=== PATIENT | male | born 1965 | race Caucasian/White ===

== ENCOUNTER 2018-05-01 11:34 | Observation (INO) ==
[2018-05-01] MEDS ORDERED: Lidocaine PF 1% Inj 5 ML Syringe INFILTRATN ONE (12:00)
[2018-05-01] MEDS ORDERED: Phenylephrine/NS 1000 MCG/10ML Syringe IV.PUSH ONE (12:00)
[2018-05-01] MEDS ORDERED: Chlorhexidine Gluconate 2% 1 Pack (2 Cloths) TOPICAL SCH (13:00)
[2018-05-01] MEDS ORDERED: Metoprolol Tartrate 25 MG Tablet PO SCH (13:00)
[2018-05-01] MEDS ORDERED: Sodium Chlor 0.9% Inj 500 ML IV.SIG SCH (13:00)
--- NOTE | 2018-05-01 13:32 | P.HPUP ---
The Pre-Admit History and Physical Examination regarding the above named patient was reviewed (including, but not limited to, vital signs, heart, lungs, co-morbid conditions), and upon re-examination it is noted that: the patient's condition has not significantly changed since the last examination.
[2018-05-01 13:40] LABS: Baso % (Auto) 0.5 % (0.0-2.0); Eos # (Auto) 0.2 th/mm3 (0.0-0.4); Eos % (Auto) 3.2 % (0.0-4.0); Hematocrit 43.3 % (39.0-51.0); Hemoglobin 14.6 gm/dL (13.0-17.0); Lymph # (Auto) 1.2 th/mm3 (1.0-4.8); Lymph % (Auto) 23.1 % (9.0-44.0); Mean Corpuscular HGB Conc 33.8 % (32.0-36.0); Mean Corpuscular Hemoglobin 29.3 pg (27.0-34.0); Mean Corpuscular Volume 86.8 fL (80.0-100.0); Mean Platelet Volume 8.4 fL (7.0-11.0); Mono # (Auto) 0.5 th/mm3 (0.0-0.9); Mono % (Auto) 10.7 % (0.0-8.0); Neut # (Auto) 3.1 th/mm3 (1.8-7.7); Neut % (Auto) 62.5 % (16.0-70.0); Platelet Count 200 th/mm3 (150-450); Red Blood Count 4.99 mil/mm3 (4.50-5.90); Red Cell Distribution Width 17.2 % (11.6-17.2)
[2018-05-01] MEDS ORDERED: Lidocaine 1%/Epinephrine 1:100,000 Inj 30 ML Vial ONE (14:21)
[2018-05-01] MEDS ORDERED: Bupivacaine/Epinephrine PF Inj 0.5% 10 ML Vial ONE (14:22)
[2018-05-01] MEDS ORDERED: Potassium Chlor 20 mEq Premix 20 MEQ/100 ML PIGGYBACK IV.SIG PRN (15:35)
[2018-05-01] MEDS ORDERED: Acetaminophen 325 MG Tablet PO PRN (15:35)
[2018-05-01] MEDS ORDERED: Potassium Chlor 40 mEq Premix 40 MEQ/100 ML PIGGYBACK IV.SIG PRN (15:35)
[2018-05-01] MEDS ORDERED: Naproxen 500 MG Tablet PO PRN (15:39)
[2018-05-01] MEDS ORDERED: KCL 20 mEq/D5W/NaCl 0.9% Inj 1,000 ML ONE (16:05)
[2018-05-01] MEDS: KCL 20 mEq/D5W/NaCl 0.9% Inj 1,000 ML IV.CONT SCH (16:10)
[2018-05-01] MEDS ORDERED: Ketorolac Inj 30 MG/ML (IVP) Vial IV.PUSH PRN (18:00)
[2018-05-01 23:11] VITALS: RESP 18
[2018-05-02 01:15] VITALS: BP 128/67; PULSE 74; TEMP 97.7; O2SAT 95
[2018-05-02] MEDS ORDERED: Lisinopril 5 MG Tablet PO SCH (09:00)
[2018-05-02] MEDS ORDERED: Pantoprazole Inj 40 MG Vial IV.PUSH SCH (09:00)
[2018-05-02] MEDS ORDERED: amLODIPine 10 MG Tablet PO SCH (09:00)
[2018-05-02] MEDS ORDERED: Allopurinol 100 MG Tablet PO SCH (09:00)
[2018-05-02 09:09] LABS: Baso % (Auto) 0.1 % (0.0-2.0); Hematocrit 41.2 % (39.0-51.0); Hemoglobin 13.5 gm/dL (13.0-17.0); Lymph # (Auto) 0.6 th/mm3 (1.0-4.8); Lymph % (Auto) 6.7 % (9.0-44.0); Mean Corpuscular HGB Conc 32.6 % (32.0-36.0); Mean Corpuscular Hemoglobin 28.1 pg (27.0-34.0); Mean Platelet Volume 8.2 fL (7.0-11.0); Mono # (Auto) 0.4 th/mm3 (0.0-0.9); Mono % (Auto) 4.7 % (0.0-8.0); Neut % (Auto) 88.5 % (16.0-70.0); Platelet Count 215 th/mm3 (150-450); Red Blood Count 4.79 mil/mm3 (4.50-5.90); Red Cell Distribution Width 17.2 % (11.6-17.2)
[2018-05-02 09:41] LABS: Anion Gap 8 meq/L (5-15); Blood Urea Nitrogen 8 mg/dL (7-18); Calcium 9.1 mg/dL (8.5-10.1); Carbon Dioxide 27.5 meq/L (21.0-32.0); Chloride 105 meq/L (98-107); Glomerular Filtration Rate Greater Than 89 mL/min (>89); Glucose,Random 99 mg/dL (74-106); Potassium 4.3 meq/L (3.5-5.1); Sodium 140 meq/L (136-145)
--- NOTE | 2018-05-02 11:11 | ECG ---
Date Performed: 05/01/2018 Time Performed: 12:18:44 PTAGE: 53 years EKG: Sinus rhythm NORMAL ECG PREVIOUS TRACING : 05/16/2012 12.40 DOCTOR: Jose Ramon Dougherty Interpretating Date/Time 05/02/2018 11:10:38
[2018-05-02] MEDS: KCL 20 mEq/D5W/NaCl 0.9% Inj 1,000 ML IV.CONT SCH (11:12)
--- NOTE | 2018-05-02 22:49 | MP ---
cc: Abdiaziz Ramirez MD, Andrew H MD DATE OF OPERATION: 05/01/2018 PREOPERATIVE DIAGNOSIS: Grade 4 hemorrhoids with prolapse. PROCEDURE PERFORMED: Exam under anesthesia, with anorectoplasty. POSTOPERATIVE DIAGNOSIS: Grade 4 hemorrhoids with prolapse. SURGEON: Abdiaziz Ramirez MD DESCRIPTION OF PROCEDURE: The patient was placed in the supine position. After adequate general anesthesia, the patient was turned and placed in the prone jackknife position and supported appropriately. Buttocks were then taped apart, prepped with Betadine solution and draped in the usual sterile fashion. Initially, local anesthesia was obtained by injection of 1% Xylocaine/0.5% Marcaine with epinephrine. The anal canal was gently dilated and a half moreno retractor inserted. Examination revealed very chronically thickened excoriated hemorrhoids in all 3 quadrants with quite a bit of external tags and prolapse of the mucosa. The rectal vault appeared to be pretty unremarkable. The sphincter muscle was a little patulous. Initially, an elliptical incision was made over the large hemorrhoidal mass in the left lateral quadrant, taking it off the internal and external sphincter. The pedicle was narrowed and divided with electrocautery. The mucosa was then closed with a running 3-0 Vicryl suture extending the closure up onto the anoderm as well. Similar dissection was then performed in the right anterior and the right posterior positions closing all incisions in a similar fashion. Quite a bit of redundant anoderm was taken, but the lumen at the end of the procedure was pretty adequate. Hemostasis was achieved at all sites. Small Surgicel dressing placed in the anal canal and a large fluff dressing placed externally. The patient tolerated the procedure quite well and was brought to the recovery room in stable condition. The sponge and needle counts were correct at the end of the procedure. Abdiaziz Ramirez MD [facility] , 10:37 PM , 10:47 PM
== END 2018-05-02 10:51 | disposition home or self-care (01) ==
LOC: N07 11:34 → HSDC 11:34 → HSDI 11:34 → N07 17:01
PROVIDERS: ADMIT Colon & Rectal Surgery; ATTEND Colon & Rectal Surgery